=== PATIENT | male | born 1970 | race Caucasian/White ===

== ENCOUNTER → 2021-04-10 | Outpatient (CLI) | payer OTHER ==
[2021-04-06 10:48] VITALS: BP 149/67
[~2021-04-10] MED LIST: CELE200C PO; OMEP20TA8 PO; SIMV10TA15 PO; SIMV40TA18 PO; TELM20TA7 PO; TELM40TA PO
[2021-04-10 14:30] LABS: BASO % 0 % (0-3); EOS % 0 % (0-3); HEMATOCRIT 29.2 % (39.0-53.0); LYMPH # 1.8 x10^3/uL (1.0-4.8); LYMPH % 66 % (24-48); MEAN CORPUSCULAR HEMOGLOBIN 29 pg (25-35); MEAN CORPUSCULAR HGB CONC 31 g/dL (31-37); MEAN CORPUSCULAR VOLUME 94 fL (79-100); MONO # 0.1 x10^3/uL (0.0-1.1); MONO % 3 % (0-9); NEUT # 0.8 x10^3/uL (1.8-7.7); NEUT % 31 % (31-73); RED BLOOD COUNT 3.09 x10^6/uL (4.30-5.70); RED CELL DISTRIBUTION WIDTH 17.8 % (11.5-14.5); WHITE BLOOD COUNT 2.7 x10^3/uL (4.0-11.0)
[2021-04-10 14:35] LABS: PROTHROMBIN TIME PATIENT 12.4 SEC (11.7-14.0)
[2021-04-10 14:38] LABS: URIC ACID 4.7 mg/dL (3.5-7.2)
[2021-04-10 15:55] LABS: PLATELET COUNT 37 x10^3/uL (140-400)
[2021-04-10 15:57] LABS: ANISOCYTOSIS SLIGHT; PLATELET CLUMP PRESENT
[2021-04-10 15:58] LABS: HYPOCHROMIA SLIGHT; POLYCHROMASIA PRESENT; SPHEROCYTES OCC
[2021-04-10 16:00] LABS: POIKILOCYTOSIS SLIGHT
[2021-04-10 16:02] LABS: OVALOCYTES OCC
[2021-04-11 16:18] LABS: KAPPA FREE 15.1 mg/L (3.3-19.4); KAPPA LAMBDA RATIO 1.09 (0.26-1.65); LAMBDA FREE 13.8 mg/L (5.7-26.3)
[2021-04-12 12:12] LABS: COMMENT IMMUNOFIX SERUM Note: (.); IMMUNOGLOBULIN A 266 mg/dL (90-386); IMMUNOGLOBULIN G 804 mg/dL (603-1613); IMMUNOGLOBULIN M 221 mg/dL (20-172)
[2021-04-12 19:10] LABS: ALBUM 3.4 g/dL (2.9-4.4); ALPHA 1 0.3 g/dL (0.0-0.4); ALPHA 2 0.5 g/dL (0.4-1.0); BETA 1.1 g/dL (0.7-1.3); GAMMA 1.1 g/dL (0.4-1.8); PROTEIN TOTAL 6.3 g/dL (6.0-8.5); SPEP AG RATIO 1.2 (0.7-1.7)
[2021-04-13 11:40] LABS: PLT ESTIMATE DECREASED (ADEQUATE)
== END ==
LOC: ONCLAB 13:53
PROVIDERS: ATTEND Internal Medicine Hematology & Oncology
DX: D61.811 Other drug-induced pancytopenia (principal); D69.6 Thrombocytopenia, unspecified
CPT/HCPCS: 36415; 82525; 82668; 82784; 83520; 83615; 84165; 84550; 85025; 85045; 85384; 85610; 85730; 86334

== ENCOUNTER 2021-04-28 06:50 | Outpatient (CLI) | payer OTHER ==
[~2021-04-28] VITALS: Ht 172.7 cm; Wt 100.0 kg
[2021-04-28] VITALS (9 sets, daily range): BP systolic 126–157; BP diastolic 76–101
[2021-04-28 07:44] LABS: BASO % 0 % (0-3); EOS % 1 % (0-3); HEMATOCRIT 26.9 % (39.0-53.0); HEMOGLOBIN 8.2 g/dL (13.0-17.5); LYMPH # 1.1 x10^3/uL (1.0-4.8); LYMPH % 82 % (24-48); MEAN CORPUSCULAR HEMOGLOBIN 29 pg (25-35); MEAN CORPUSCULAR HGB CONC 31 g/dL (31-37); MEAN CORPUSCULAR VOLUME 95 fL (79-100); MONO # 0.1 x10^3/uL (0.0-1.1); MONO % 7 % (0-9); NEUT # 0.1 x10^3/uL (1.8-7.7); NEUT % 11 % (31-73); PLATELET COUNT 51 x10^3/uL (140-400); RED BLOOD COUNT 2.84 x10^6/uL (4.30-5.70)
[2021-04-28 07:49] LABS: CALCIUM 8.8 mg/dL (8.5-10.1); CREATININE 0.9 mg/dL (0.7-1.3); POTASSIUM 4.2 mmol/L (3.5-5.1)
[2021-04-28 07:52] LABS: PROTHROMBIN TIME PATIENT 11.8 SEC (11.7-14.0)
[2021-04-28 07:58] LABS: WHITE BLOOD COUNT 1.3 x10^3/uL (4.0-11.0)
[2021-04-28] MEDS ORDERED: LIDOCAINE WITH 8.4% SOD BICARB 3 ML DISP.SYRIN. ONE (08:06)
[2021-04-28] MEDS ORDERED: MIDAZOLAM HCL/PF 2 MG/2 ML VIAL. ONE (08:55)
[2021-04-28] MEDS ORDERED: FLUMAZENIL 0.5 MG/5 ML VIAL. IV ONE (08:56)
[2021-04-28] MEDS ORDERED: fentaNYL PF VIAL 100 MCG/2 ML VIAL ONE (08:56)
[2021-04-28] MEDS ORDERED: NALOXONE 0.4 MG/ML VIAL. ONE (08:56)
[2021-04-28] MEDS ORDERED: LIDOCAINE WITH 8.4% SOD BICARB 3 ML DISP.SYRIN. IJ ONE (09:15)
[2021-04-28] MEDS ORDERED: fentaNYL PF VIAL 100 MCG/2 ML VIAL IV ONE (09:15)
[2021-04-28] MEDS ORDERED: MIDAZOLAM HCL/PF 2 MG/2 ML VIAL. IV ONE (09:15)
[2021-04-28 10:57] LABS: % LYMPHS 94 % (24-48); % SEGS 6 % (35-66)
[2021-04-28 10:58] LABS: PLATELET CLUMP PRESENT; PLT ESTIMATE DECREASED (ADEQUATE)
[2021-04-28 10:59] LABS: POLYCHROMASIA MOD; TARGET CELLS FEW
[2021-04-28 11:00] LABS: ANISOCYTOSIS SLIGHT
--- NOTE | 2021-04-28 11:08 | RAD ---
CT-guided bone marrow biopsy. 04/28/2021 9:00 AM Indication: PANCYTOPENIA Discussion: The risks and benefits of the procedure, including but not limited to, bleeding and infection were discussed patient. Informed consent was obtained. The patient was brought to the CT scanner and placed in the prone position. A timeout procedure was performed. Tool Checker CT imaging of the pelvis demonstrated left ilium amenable to bone marrow biopsy. The overlying soft tissues were prepped and draped using maximum sterile barrier technique. 1% lidocaine without epinephrine was administered for local anesthesia. Under intermittent CT guidance, an OncControl needle was advanced into the bone marrow of the left iliac crest. 2 Aspirates and 1 core biopsy samples were obtained. Samples were delivered to pathology was present at the time of procedure. The needle was removed and manual pressure held to achieve hemostasis. No immediate complications were identified. The procedure was performed under conscious sedation including continuous cardiopulmonary monitoring via dedicated sedation nurse. Sedation time: 20 minutes Impression: Successful CT-guided bone marrow biopsy of the left iliac crest . PQRS Compliance Statement: One or more of the following individualized dose reduction techniques were utilized for this examination: 1. Automated exposure control 2. Adjustment of the mA and/or kV according to patient size 3. Use of iterative reconstruction technique
--- NOTE | 2021-04-28 11:20 | NUR ---
Discharge Note: TRESSA CARRIZALES Discharge instructions and discharge home medications reviewed with Patient and a copy given. All questions have been answered and understanding verbalized. The following instructions and handouts were given: adult moderate sedation and post bone marrow biopsy aftercare Discontinued lines and drains: Peripheral IV intact. Patient discharged to Home or Self Care withSignificant Othervia Wheelchair
--- NOTE | 2021-05-04 10:09 | PATHOLOGY ---
[facility] Accession Number: [id number] . 01 Material submitted: . PART A: bone - BONE MARROW BIOPSY PART B: bone - BONE MARROW ASP CLOT PART C: bone - BONE MARROW ASP SMEARS PART D: bone - PERIPHERAL BLOOD SMEAR . 01 Clinical history: . PANCYTOPENIA . 02 Diagnosis: Peripheral smear: - Marked leukopenia and absolute neutropenia. - Normocytic normochromic anemia, moderate. - Thrombocytopenia, moderate to marked. . Bone marrow, aspirate smears, clot section and core biopsy: - Moderately hypercellular marrow showing left shift of granulopoiesis with approximately 20% myeloblasts, mild dyspoiesis, and decreased megakaryocytes - findings are compatible with an acute myeloid leukemia. - Decreased iron stores. . (JPM:bhavesh; 05/03/2021) [facility] 05/03/2021 1837 Local . 02 Comment: The peripheral smear shows a marked leukopenia and absolute neutropenia, moderate normocytic normochromic anemia, and moderate to marked thrombocytopenia. The bone marrow is moderately hypercellular and shows a left shift of granulopoiesis with approximately 20% blasts, mild dyspoiesis, and decreased megakaryocytes. Flow cytometric analysis of bone marrow shows 20.9% blasts having immunophenotypic features of myeloblasts. Morphologic evaluation of the bone marrow aspirate reveals approximately 20% blasts. The findings are compatible with an acute myeloid leukemia. The case is also examined by Dr. Jonathan Hills, who concurs with the diagnosis. (STEVEN:bhavesh; 05/03/2021) . . Special stains performed: Iron stain on A1, B1 and aspirate smear. Reticulin stain performed on A1. Immunoperoxidase stains for CD34, CD117 and CD31 are performed on A1 and also on B1. . 02 Electronically signed: . Michael Souza MD, Pathologist NPI- [id number] . 01 Gross description: . A. Received in formalin labeled "Hector Choe and bone marrow core biopsy". Received are 2 ranging from 0.4-1.0 cm in length and 0.2 cm in diameter. The specimen is entirely submitted in cassette A1 after light decalcification. . B. Received in formalin labeled "Hector Choe and bone marrow aspirate clot". Received are multiple hemorrhagic clot fragments measuring in aggregate 3.0 x 2.0 x 0.2 cm. The specimen is entirely submitted in cassette B1.([facility]; 04/28/2021) J/J 04/28/2021 1711 Local . 02 Microscopic: . Laboratory Data: The WBC count is 1.3 K/CMM, and the automated WBC differential reveals 11% neutrophils, 82% lymphs, 7% monos, and 1% eos. The RBC count is 2.84 M/CMM, hemoglobin 8.2 G/DL, hematocrit 26.9%, MCV 95 FL, MCH 29 PG, MCHC 31 G/DL, and the RDW is 18.0%. The platelet count is 51 K/CMM. . Peripheral Smear: The peripheral smear is reviewed. The WBC count is markedly increased. There is a marked absolute neutrophilia. The WBC differential reveals a predominance of lymphocytes, with small populations of segmented neutrophils and monocytes and few immature mononuclear cells noted. The lymphocyte population consists predominantly of small mature appearing lymphocytes. Some of the segmented neutrophils have abnormally segmented nuclei. The immature mononuclear cells have a high N/C ratio, and possess slightly irregular nuclei having a delicate nuclear chromatin. There are no Sonali rods noted. Red blood cells predominantly appear normochromic and normocytic. There is mild polychromasia. Red blood cells show mild anisocytosis and range from normocytic to mildly macrocytic. Red blood cells show mild poikilocytosis comprised of few ovalocytes and occasional teardrop red blood cells. There is a rare nucleated red blood cell. Platelets are moderately decreased. However, there are platelet clumps present. . Aspirate Smears: Two Valladares's-stained and one iron-stained aspirate smears are examined. The smears contain multiple marrow particles which appear hypercellular for age. Erythroid maturation predominantly appears normoblastic. Some erythroid precursors show mild megaloblastoid changes. There is a left shift of granulopoiesis with an increase of blasts. Maturing granulocytic precursors show nuclear/cytoplasmic maturation dyssynchrony and smudged cytoplasmic granulation. The blasts are of small to medium size and have a high N/C ratio, and possess rounded to ovoid nuclei having a delicate chromatin containing one or more nucleoli. No Sonali rods are identified. Megakaryocytes are markedly decreased. There is a large mononuclear megakaryocyte having a hypolobate nucleus, and there is another mononuclear megakaryocyte having a hyperlobulated nucleus. There are scattered plasma cells with no significant increase of plasma cells noted. There is no increase of lymphocytes. There are no cells foreign to the marrow. A 500 cell marrow differential reveals the following: blasts 20%, maturing granulocytes 27%, eosinophils 2%, erythroid precursors 36%, lymphocytes 10%, monocytes 4%, and plasma cells 1.0%. The iron-stained smear shows absent iron stores. No ringed sideroblasts are identified. . Bone Marrow Biopsy and Clot Section: Sections of the bone marrow biopsy reveal a hypercellular bone marrow which is approximately 80% cellular. The clot section contains multiple marrow particles which are on the order of 70%-80% cellular. There is a patchy increase throughout the marrow of medium-sized immature mononuclear cells compatible with an increase of blasts. There are admixed erythroid precursors and maturing granulocytic precursors. Megakaryocytes are decreased. There are small dysplastic megakaryocytes having hypolobated or hyperlobulated nuclei. There is no increase of lymphocytes or plasma cells. There are no abnormal lymphoid aggregates or granulomas. There are no cells foreign to the marrow. A limited panel of immunoperoxidase stains is obtained and yields the following results: . CD34 (A1): Blast cells positive. CD117 (A1): Blast cells positive. CD31 (A1): Megakaryocyte positive appearing more numerous than the H and E-stained smears with presence of small dysplastic megakaryocytes. CD34 (B1): Blasts positive. CD117 (B1): Blasts positive. CD31 (B1): Megakaryocyte positive with, dysplastic mononuclear megakaryocytes noted. . A reticulin stain obtained on the biopsy shows focal mildly increased reticulin fibers. An iron stain obtained on the biopsy shows decreased iron stores. An iron stain obtained on the clot section shows markedly decreased iron stores. No ringed sideroblasts are identified. . Special Studies: Bone marrow submitted for flow cytometric analysis has a viability of 79.4%. There is a left-shifted myeloid maturation pattern with 20.9% myeloblasts. Granulocytes comprise 34.5% of total cells and show left-shifted maturation and dyssynchronous CD10/CD13/CD16 expression. Monocytes comprise 6.3% of total cells and co-express CD14 and CD64. Lymphocytes comprise 32.9% of total cells. T-cells comprise 82% of lymphoid cells and show a CD4/CD8 ratio of 1.7. NK-cells comprise 11% of lymphoid cells. Mature B-cells comprise 4% of lymphoid cells and are polyclonal with a kappa:lambda ratio of 1.9. CD45 dim, CD34 positive cells (blasts) comprise 20.9% of total cells. The blasts are CD13, CD33, CD34, CD38, CD117, HLA-DR, and myeloperoxidase positive. The blasts are negative for cytoplasmic CD22, cytoplasmic CD79a, cytoplasmic CD3, TdT, and CD123. . (JPM:tonie/dress shoe inspector; 05/02/2021) . 02 Pathologist provided ICD-10: D72.819, D69.6, D64.9, D75.9 . 02 CPT . 953092, [id number], 397266, 739008, 477991, 255690, 814191, 647853, [id number], [id number], [id number] Specimen Comment: A courtesy copy of this report has been sent to [phone] Specimen Comment: [id number], Specimen Comment: Report sent to / DR GUPTA Performed at: 01 [facility] [address], [place] [id number] MD Jez Aguiar MD Phone: [phone] Performed at: 02 [facility] [address] [place], [place] [id number] MD Michael Souza MD Phone: [phone]
== END 2021-04-28 11:00 | disposition home or self-care (01) ==
LOC: INTRAD 06:50
PROVIDERS: ATTEND Internal Medicine Hematology & Oncology
DX: D61.811 Other drug-induced pancytopenia (principal); I10 Essential (primary) hypertension; E78.00 Pure hypercholesterolemia, unspecified; K21.9 Gastro-esophageal reflux disease without esophagitis; M19.90 Unspecified osteoarthritis, unspecified site; Z87.891 Personal history of nicotine dependence; Z79.899 Other long term (current) drug therapy; Z98.890 Other specified postprocedural states; Z72.89 Other problems related to lifestyle
CPT/HCPCS: 36415; 38222; 77012; 80048; 85007; 85025; 85610; 87426; 99152; J2250; J3010; J3490; 88184; 88185; 88237; 88305; 88311; 88313; 88341; 88342

== ENCOUNTER → 2021-05-08 | Outpatient (CLI) | payer OTHER ==
[2021-04-28 10:40] VITALS: BP 147/77
[2021-05-08 13:54] LABS: FREE T4 0.95 ng/dL (0.76-1.46); THYROID STIM HORMONE (TSH) 2.374 uIU/mL (0.358-3.74)
[2021-05-09 17:10] LABS: ANA INTERP Negative (.)
== END ==
LOC: ONCLAB 12:05
PROVIDERS: ATTEND Internal Medicine Hematology & Oncology
DX: D61.811 Other drug-induced pancytopenia (principal); D69.59 Other secondary thrombocytopenia; D70.8 Other neutropenia
CPT/HCPCS: 82175; 83921; 84439; 84443; 86038; 86140; 86704; 86706; 86803; 87340; 87497; 87799

== ENCOUNTER → 2021-05-19 | Outpatient (CLI) | payer OTHER ==
[2021-04-28 10:40] VITALS: BP 147/77
[2021-05-19 11:58] LABS: BASO % 0 % (0-3); EOS % 0 % (0-3); HEMATOCRIT 26.7 % (39.0-53.0); HEMOGLOBIN 8.1 g/dL (13.0-17.5); LYMPH # 1.3 x10^3/uL (1.0-4.8); LYMPH % 82 % (24-48); MEAN CORPUSCULAR HEMOGLOBIN 29 pg (25-35); MEAN CORPUSCULAR HGB CONC 30 g/dL (31-37); MEAN CORPUSCULAR VOLUME 94 fL (79-100); MONO # 0.1 x10^3/uL (0.0-1.1); MONO % 5 % (0-9); NEUT # 0.2 x10^3/uL (1.8-7.7); NEUT % 12 % (31-73); RED BLOOD COUNT 2.83 x10^6/uL (4.30-5.70); RED CELL DISTRIBUTION WIDTH 19.3 % (11.5-14.5)
[2021-05-19 12:11] LABS: PLATELET COUNT 25 x10^3/uL (140-400); WHITE BLOOD COUNT 1.6 x10^3/uL (4.0-11.0)
[2021-05-19 12:36] LABS: % ATYL 3 % (0-0); % LYMPHS 79 % (24-48); % MONOS 8 % (0-10); % SEGS 10 % (35-66); NUCLEATED RBC 2; PLT ESTIMATE DECREASED (ADEQUATE)
[2021-05-19 12:39] LABS: ANISOCYTOSIS SLIGHT; POLYCHROMASIA SLIGHT
== END ==
LOC: ONCLAB 10:50
PROVIDERS: ATTEND Physician Assistant
DX: D69.59 Other secondary thrombocytopenia (principal)
CPT/HCPCS: 36415; 85007; 85025; 86850; 86900; 86901